=== PATIENT | female | born 1975 | race Hispanic/Latino ===

== ENCOUNTER → 2022-11-29 | Outpatient (CLI) | payer MEDICAID ==
[~2022-11-29] MED LIST: IOHEXOL 350 MG/ML 100ML INFUS..BTL IV ONE
== END | disposition home or self-care (01) ==
LOC: RAH 09:54
PROVIDERS: ATTEND Surgery
DX: K57.30 Diverticulosis of large intestine without perforation or abscess without bleeding (principal); M47.815 Spondylosis without myelopathy or radiculopathy, thoracolumbar region
CPT/HCPCS: 74177; Q9967